=== PATIENT | male | born 1995 | race Caucasian/White ===

== ENCOUNTER → 2017-05-12 | Outpatient (CLI) | payer BC ==
--- NOTE | 2017-05-12 09:27 | US ---
EXAMINATION TYPE: US abdomen complete DATE OF EXAM: 05/12/2017 COMPARISON: NONE CLINICAL HISTORY: R11.2 NAUSEA AND VOMITING. Nausea and vomiting x 1 year. Abdominal cramping EXAM MEASUREMENTS: Liver Length: 13.0 cm Gallbladder Wall: 0.3 cm CBD: 0.2 cm Spleen: 11.2 cm Right Kidney: 9.2 x 3.5 x 4.3 cm Left Kidney: 10.9 x 4.3 x 4.6 cm Pancreas: Obscured by bowel gas Liver: appears wnl Gallbladder: no evidence of stones Evidence for sonographic Proctor's sign: no CBD: wnl Spleen: wnl Right Kidney: no evidence of hydronephrosis or mass Left Kidney: no evidence of hydronephrosis or mass Upper IVC: wnl Abd Aorta: wnl The liver is homogenous. The intrahepatic portion of the IVC and proximal abdominal aorta are within normal limits. There is no evidence of cholelithiasis. Common bile duct is unremarkable. The visu alized portions of the pancreas are homogenous. The spleen is unremarkable. Kidneys are symmetric a nd free of hydronephrosis. No renal lesions are seen. IMPRESSION: No sonographic evidence of cholelithiasis or cholecystitis. Given the patient's symptoms if there is clinical concern for biliary dyskinesia or chronic cholecystitis HIDA scan with CCK could be performed for further evaluation.
== END | disposition home or self-care (01) ==
LOC: RADUSWWP 08:13
PROVIDERS: ATTEND Family Medicine
DX: R11.2 Nausea with vomiting, unspecified (principal)
CPT/HCPCS: 76700

== ENCOUNTER 2017-06-23 10:41 | Day surgery (SDC) | payer BC ==
[2017-06-20 12:25] VITALS: BMI 25.0
[~2017-06-23 10:41] MED LIST: LACTATED RINGERS 1,000 ML IV SCH; LIDOCAINE 1% 20 ML VIAL (10MG/ML) FOR IV START INTRADERMA PRN
[2017-06-23 10:52] VITALS: TEMP 98.1
[2017-06-23] MEDS ORDERED: LACTATED RINGERS 1,000 ML IV ONE (10:54)
[2017-06-23] MEDS ORDERED: MIDAZOLAM 2 MG/2 ML VIAL ONE (11:27)
[2017-06-23] MEDS ORDERED: LIDOCAINE 1% INJ 10MG/ML (20 ML MDV) ONE (11:27)
[2017-06-23] MEDS ORDERED: PROPOFOL 10 MG/ML 20 ML VIAL IV ONE (11:27)
--- NOTE | 2017-06-23 12:03 | P.PCN ---
Date of Procedure: 06/23/17 Procedure(s) Performed: Procedure: Esophagogastroduodenoscopy and biopsy. Preoperative diagnosis: Persistent nausea and intermittent vomiting for the last year. Postoperative diagnosis: 1. Very small sliding hiatal hernia with low-grade distal esophagitis. 2. Mild antral gastritis. 3. Multiple biopsies obtained from the duodenum, antrum and esophagus. Preparation sedation: Was provided by anesthesia. Brief clinical history: The patient is a 22-year-old male who I have evaluated in the office recently regarding persistent nausea and intermittent vomiting that he has been having for the last year or so not responding to symptomatic treatment and acid suppressive therapy. This evaluation is to rule out peptic ulcer disease, complicated reflux disease or other pathology. Procedure: With the patient on his left lateral decubitus position and after informed consent and adequate sedation, I passed the Olympus-GIF 160 video upper endoscope through the cricopharyngeus down the esophagus. GE junction was around 39 cm from the incisors and there was a small, less than 1 cm, sliding hiatal hernia. The distal esophagus showed a single short linear erosion terminating at the GE junction but there were no ulcers, strictures or Parra's esophagus. The endoscope was then passed into the stomach which was insufflated with air and inspected in detail including the retroflex view in the cardia. There was some mottling and erythema in the antrum but no ulcers or erosions. Pyloric channel, duodenal bulb, post bulbar area and descending duodenum appeared within normal limits. Because of his symptoms, I obtained biopsies from the duodenum, antrum and esophagus then the endoscope was withdrawn. The patient tolerated the procedure well. Plan: The patient was reassured. Will await biopsy results. I'll see him in follow-up in the office and make additional recommendations based on his course and biopsy results.
[2017-06-23 12:37] VITALS: BP 119/73; PULSE 79; RESP 18
== END 2017-06-23 12:48 | disposition home or self-care (01) ==
LOC: ORWHC2ENDO 10:41
DX: K29.50 Unspecified chronic gastritis without bleeding (principal); K20.8 Other esophagitis; K44.9 Diaphragmatic hernia without obstruction or gangrene; J45.909 Unspecified asthma, uncomplicated; Z88.1 Allergy status to other antibiotic agents; Z79.899 Other long term (current) drug therapy
CPT/HCPCS: 88305; 88342; 43239; J2250; J2001; J2704

== ENCOUNTER → 2020-01-21 | Outpatient (CLI) | payer BC ==
--- NOTE | 2020-01-21 12:20 | US ---
EXAMINATION TYPE: US abdomen complete DATE OF EXAM: 01/21/2020 COMPARISON: May 12, 2017 CLINICAL HISTORY: R10.11 RT upper quadrant pain. RUQ pain for 1.5 months, back pain for 2 weeks EXAM MEASUREMENTS: Liver Length: 13.6 cm Gallbladder Wall: 0.2 cm CBD: 0.4 cm Spleen: 10.5 cm Right Kidney: 9.8 x 3.4 x 4.1 cm Left Kidney: 11.0 x 4.7 x 4.4 cm Pancreas: Obscured by bowel gas Liver: wnl Gallbladder: no evidence of stones Evidence for sonographic Proctor's sign: no CBD: wnl Spleen: wnl Right Kidney: no evidence of hydronephrosis Left Kidney: no evidence of hydronephrosis Upper IVC: wnl Abd Aorta: wnl The liver is homogenous. The intrahepatic portion of the IVC and proximal abdominal aorta are within normal limits. There is no evidence of cholelithiasis. Common bile duct is unremarkable. The visu alized portions of the pancreas are homogenous. The spleen is unremarkable. Kidneys are symmetric a nd free of hydronephrosis. No renal lesions are seen. IMPRESSION: No significant abnormality is appreciated.
== END | disposition home or self-care (01) ==
LOC: RADUSWWP 10:49
PROVIDERS: ATTEND Family Medicine
DX: R10.11 Right upper quadrant pain (principal)
CPT/HCPCS: 76700

== ENCOUNTER → 2020-02-15 | Outpatient (CLI) | payer BC ==
--- NOTE | 2020-02-15 14:39 | NM ---
EXAMINATION TYPE: NM hepatobiliary w EF DATE OF EXAM: 02/15/2020 COMPARISON: Ultrasound abdomen 01/21/2020 HISTORY: Right upper quadrant pain TECHNIQUE: After the intravenous administration of 4.1 mCi Tc 99m Mebrofenin hepatobiliary scintigrap hy is performed. Immediate images post injection. FINDINGS: There is satisfactory initial accumulation of tracer by the liver. The gallbladder is visualized wit hin 8 minutes. The small bowel activity is noted within 4 minutes. At one hour 8 ounces of oral ens ure plus is given to mimic CCK and gallbladder ejection fraction is calculated at 66 %, in the normal range. Therefore there is no scintigraphic evidence of cystic or common bile duct obstruction to dugan ggest acute cholecystitis or gallbladder dyskinesia. IMPRESSION: Exam is within normal limits.
== END | disposition home or self-care (01) ==
LOC: RADNMMAIN 12:05
PROVIDERS: ATTEND Family Medicine
DX: R10.11 Right upper quadrant pain (principal)
CPT/HCPCS: 78226; A9537

== ENCOUNTER → 2023-10-24 | Outpatient (CLI) | payer MEDICAID ==
--- NOTE | 2023-10-24 12:59 | US ---
EXAMINATION TYPE: US abdomen complete DATE OF EXAM: 10/24/2023 COMPARISON: US, MA CLINICAL INDICATION: Male, 28 years old with history of R10.9 UNSPECIFIED ABDOMINAL PAIN; Pain x coup le weeks. TECHNIQUE: Multiple sonographic images of the abdomen are obtained. FINDINGS: EXAM MEASUREMENTS: Liver Length: 14.6 cm Gallbladder Wall: 0.26 cm CBD: Unable to visualize Spleen: 10.2 cm Right Kidney: 10.7 x 4.9 x 4.2 cm Left Kidney: 11.6 x 4.6 x 5.5 cm [employer]AFF [employer]INESS OFFICER NOTES: Limited due to great amount of gas Pancreas: Not well seen Liver: Slightly coarse and echogenic in appearance. No focal lesion. Gallbladder: Appears wnl Evidence for sonographic Proctor's sign: No CBD: Unable to visualize Spleen: Appears wnl Right Kidney: No hydronephrosis or masses seen Left Kidney: No hydronephrosis or masses seen Upper IVC: Appears wnl Abd Aorta: Appears wnl IMPRESSION: 1. There may be underlying mild hepatic steatosis or other nonspecific hepatocellular disease. Clinic ally correlate. 2. No gallstones. 3. Unable to adequately visualize the bile duct for assessment.
== END | disposition home or self-care (01) ==
LOC: RADUSWWP 08:52
PROVIDERS: ATTEND Family Medicine
DX: R10.9 Unspecified abdominal pain (principal)
CPT/HCPCS: 76700